=== PATIENT | female | born 2000 | race Native Hawaiian/Other Pacific Islander ===

== ENCOUNTER 2021-02-12 09:50 | Emergency (ER) | payer OTHER ==
[~2021-02-12] VITALS: Ht 167.6 cm; Wt 60.8 kg
[2021-02-12 09:57] VITALS: TEMP 98
[2021-02-12 11:03] LABS: PLATELET COUNT 239 K/uL (152-353)
[2021-02-12 11:07] LABS: POTASSIUM 4.1 mmol/L (3.6-5.2)
[2021-02-12 13:14] VITALS: BP 116/70
== END 2021-02-12 13:14 | disposition home or self-care (01) ==
LOC: ED 09:50
PROVIDERS: Family Medicine
DX: J06.9 Acute upper respiratory infection, unspecified (principal); K29.60 Other gastritis without bleeding; J02.9 Acute pharyngitis, unspecified; Z20.822 Contact with and (suspected) exposure to COVID-19; F17.290 Nicotine dependence, other tobacco product, uncomplicated
CPT/HCPCS: 80053; 81000; 81025; 85027; 87502; 87635; 87651; 96374; 96375; 99284; J1885; J2405; J3490; U0003

== ENCOUNTER 2021-04-26 14:03 | Emergency (ER) | payer OTHER ==
[~2021-04-26] VITALS: Ht 167.6 cm; Wt 65.8 kg
[2021-04-26 14:15] VITALS: BP 121/74; TEMP 98.1
[2021-04-26 15:14] LABS: PLATELET COUNT 212 K/uL (152-353)
[2021-04-26 15:27] LABS: POTASSIUM 4.1 mmol/L (3.6-5.2)
== END 2021-04-26 19:27 | disposition home or self-care (01) ==
LOC: ED 14:03
PROVIDERS: Family Medicine
DX: K29.70 Gastritis, unspecified, without bleeding (principal); R11.2 Nausea with vomiting, unspecified; R19.7 Diarrhea, unspecified; F41.8 Other specified anxiety disorders
CPT/HCPCS: 80053; 81000; 81025; 82150; 83690; 85027; 96365; 96375; 99284; J2405; Q9963

== ENCOUNTER 2021-05-25 09:07 | Emergency (ER) | payer OTHER ==
[~2021-05-25] VITALS: Ht 167.6 cm; Wt 65.8 kg
[2021-05-25 09:27] VITALS: TEMP 97
[2021-05-25 09:46] LABS: PLATELET COUNT 274 K/uL (152-353)
[2021-05-25 09:56] LABS: POTASSIUM 3.8 mmol/L (3.6-5.2)
[2021-05-25 11:33] VITALS: BP 118/78
== END 2021-05-25 11:25 | disposition home or self-care (01) ==
LOC: ED 09:07
PROVIDERS: Emergency Medicine
DX: R10.13 Epigastric pain (principal); F41.8 Other specified anxiety disorders
CPT/HCPCS: 80053; 80307; 81000; 81025; 82150; 83690; 85027; 96374; 96375; 99284; J2060; J2405; Q9963

== ENCOUNTER 2021-06-12 19:58 | Emergency (ER) | payer OTHER ==
[~2021-06-12] VITALS: Ht 167.6 cm; Wt 40.8 kg
[2021-06-12 20:55] LABS: PLATELET COUNT 228 K/uL (152-353)
[2021-06-12 21:05] LABS: POTASSIUM 3.3 mmol/L (3.6-5.2)
[2021-06-12 21:58] LABS: PARTIAL THROMBOPLASTIN TIME 24.7 SECONDS (24.5-33.6)
[2021-06-13 00:20] VITALS: BP 108/69; TEMP 98.6
== END 2021-06-13 00:20 | disposition home or self-care (01) ==
LOC: ED 19:58
PROVIDERS: Hospitalist
DX: K64.8 Other hemorrhoids (principal); K62.5 Hemorrhage of anus and rectum; R11.2 Nausea with vomiting, unspecified
CPT/HCPCS: 80053; 80307; 81000; 81025; 83690; 85027; 85610; 85730; 96360; 96375; 96376; 99284; J1200; J1885; J2405

== ENCOUNTER 2021-07-04 09:02 | Emergency (ER) | payer OTHER ==
[~2021-07-04] VITALS: Ht 167.6 cm; Wt 40.8 kg
[2021-07-04 09:08] VITALS: TEMP 98
[2021-07-04 09:53] LABS: PLATELET COUNT 283 K/uL (152-353)
[2021-07-04 09:58] LABS: POTASSIUM 3.7 mmol/L (3.6-5.2)
[2021-07-04 13:15] VITALS: BP 121/78
== END 2021-07-04 13:15 | disposition home or self-care (01) ==
LOC: ED 09:02
PROVIDERS: Hospitalist
DX: R10.84 Generalized abdominal pain (principal); G89.29 Other chronic pain; R19.7 Diarrhea, unspecified; N83.292 Other ovarian cyst, left side
CPT/HCPCS: 36415; 80053; 80307; 80320; 81000; 81025; 83690; 85027; 96360; 96361; 96375; 99284; J1885; J2405; Q9963